=== PATIENT | female | born 1975 | race Caucasian/White ===

== ENCOUNTER 2025-09-28 01:00 | Emergency (ER) | payer OTHER, SELFPAY ==
--- NOTE | ~2025-09-28 | CT_ITS ---
CLINICAL HISTORY: fall +HS CT cervical spine without contrast Comparison: None provided. Findings: The visualized portions of the bilateral lung apices appear clear. No cervical spondylolisthesis. Guvd-ve-njhuwknt degenerative endplate changes are present at the cervical spine. No acute fractures or dislocations. Impression: 1. No acute fracture or dislocation injury identified at the cervical spine. This document has been electronically signed by: Jose Chavis MD on 09/28/2025 04:08:44
--- NOTE | ~2025-09-28 | CT_ITS ---
CLINICAL HISTORY: fall +HS CT head without contrast Comparison: None provided. Findings: No intracranial mass, midline shift, hydrocephalus, or acute hemorrhage. Slightly increased attenuation identified within the major intracranial arterial vessels, mildly limiting evaluation for subtle intracranial hemorrhage. Mild mucosal thickening identified within the ethmoid air cells with minimal mucosal thickening at the left maxillary sinus. The bilateral mastoid air cells appear clear. No acute skull fracture. Iokn-sx-sabuqlxr right occipital scalp hematoma present. There is a small amount of superimposed soft tissue gas, consistent with posttraumatic change. Impression: 1. No acute intracranial abnormality. No acute intracranial hemorrhage. 2. Magw-qz-itpmanim right occipital scalp hematoma with a small amount of superimposed soft tissue gas, consistent with posttraumatic change. No acute calvarial fracture. This document has been electronically signed by: Jose Chavis MD on 09/28/2025 04:13:22
[2025-09-28 01:12] VITALS: BP 136/75; PULSE 98; RESP 20; TEMP 36.7; O2SAT 98; BMI 20.9
--- NOTE | 2025-09-28 01:32 | PC.NURSE ---
patient brought in from triage via wheelchair to ed5 reporting fall with HS. [place]. patient then stated she went home and upon getting out of the car she fell backwards. unsure of LOC. asked pt who was with her to possibly confirm +/- LOC. pt stated she was alone and had drove herself. notified Philippe MAY of presenting sx and suggested head/neck CT scan. order placed per Philippe MAY verbal order. bump noted to back of head with small laceration, no bleeding at this time. visitor at bedside with pt.
[2025-09-28 01:42] VITALS: BP 119/80; PULSE 91; RESP 22; TEMP 36.4; O2SAT 97
[2025-09-28 01:54] LABS: MANUAL DIFF FLAG NO
[2025-09-28 01:55] LABS: Hematocrit 41.3 % (37.0-47.0); Hemoglobin 14.1 g/dl (12.0-16.0); Imm Gran Abs Auto 0.01 X10*3/uL (0.00-0.03); Imm Gran Pct Auto 0.2 % (0.0-0.4); Lymphocytes Absolute Auto 2.7 X10*3/uL (1.2-4.9); Mean Corpuscular HGB Conc 34.1 g/dl (31.0-35.0); Mean Corpuscular Hemoglobin 32.9 pg (27.0-33.0); Mean Corpuscular Volume 96.3 fL (80.0-98.0); NRBC Abs Auto 0.000 X10*3/uL (0.0-0.012); NRBC Pct Auto 0.0 /100WBC (0.0-0.2); Platelet Count 249 X10*3/uL (160-400); Red Blood Count 4.29 X10*6/uL (4.20-5.50); White Blood Count 6.3 X10*3/uL (4.8-10.8)
[2025-09-28 02:08] LABS: Alanine Aminotransferase 32 U/L (0-31); Albumin Level 4.7 g/dL (3.5-5.0); Alkaline Phosphatase 97 U/L (39-117); Anion Gap 13 (12-20); Aspartate Amino Transferase 30 U/L (5-31); Blood Urea Nitrogen 10 mg/dL (9-16); Calcium 9.0 mg/dL (8.4-10.2); Carbon Dioxide 29 mmol/L (22-29); Chloride 105 mmol/L (96-108); Creatinine Clr Calc Pharmacy 92.8; Estimated Glomerular Filt Rate > 60; Magnesium 2.2 mg/dL (1.6-2.6); Potassium 3.7 mmol/L (3.3-5.1); Sodium 143 mmol/L (135-145); Total Protein 6.9 g/dL (6.5-8.0)
--- NOTE | 2025-09-28 02:16 | PC.NURSE ---
patient had call [place] within reach. found in the hallway stated she wanted to use the bathroom. friend is at bedside in the room. pt did not use call [place]. ambulated with steady gait to bathroom and back. pt re educated on use of call [place]. pt then rang upon RN leaving room and upon re entering stated she didn't need anything. reeducation on using call [place] when necessary.
--- NOTE | 2025-09-28 02:25 | PC.NURSE ---
pt moved from ed5 to 10hall d/t bed availability report to mary bowie.
--- NOTE | 2025-09-28 02:30 | PC.NURSE ---
Pt attempting to leave unit, verbally directed back to stretcher. Pt becoming verbally agitated, swearing at staff
--- NOTE | 2025-09-28 02:38 | ED_ITS ---
HPI - Fall General Chief Complaint: Fall Stated Complaint: head strike Time Seen by Provider: 09/28/25 02:39 Source: patient Mode of arrival: ambulatory Limitations: no limitations History of Present Illness ED Provider: Philippe MAY HPI Narrative: The patient is a 49-year-old female presenting to the ED for evaluation after suffering a mechanical fall in which she fell backwards and struck her head on a cement floor. The patient is unsure if she lost consciousness, denies anticoagulation. The patient reports she was drinking alcohol throughout the day. The patient denies associated chest pain, shortness of breath, abdominal pain, nausea, vomiting, focal neurologic deficit, or other acute somatic complaint. Related Data Allergies Allergy/AdvReac Type Severity Reaction Status Date / Time No Known Allergies Allergy Verified 09/28/25 01:14 Review of Systems 2 Review of Systems: Yes all other systems are reviewed and are negative PMFSH Social History Social History Advance Directives: No Advance Directives Information Provided: Yes Do you have a plan to hurt others: No Plan Physical Exam 2 Vital Signs: Vital Signs: Last Vital Signs Temp 97.6 F 09/28/25 04:08 Pulse 91 09/28/25 04:08 Resp 22 H 09/28/25 04:08 BP 119/80 09/28/25 04:08 Pulse Ox 97 09/28/25 04:08 O2 Del Method Room Air 09/28/25 04:08 BMI result Body Mass Index 20.9 CONSTITUTIONAL: The patient appears clinically intoxicated, odor of EtOH metabolites on breath, otherwise non-toxic, well nourished and in no acute distress. Vital signs as documented. HEAD: There is a 3.5 cm laceration noted to the right occiput with the hemostasis noted, no underlying crepitus, head is otherwise atraumatic, normocephalic. EYES: EOMs grossly intact, pupils equal, conjunctiva clear, no exudate. ENT: Nares patent, no discharge. Airway patent, no audible stridor, visible mucosa is pink and moist without noted lesions. NECK: Trachea is midline, no obvious masses or gross abnormalities. CHEST: Symmetric movement, normal appearance. LUNGS: LS present and CTAB, no w/r/r. Non-labored work of breathing. CARDIAC: Regular Rhythm, S1/S2 appreciated, no murmurs, rubs or gallops. ABDOMEN: Abdomen soft and non-tender x4 quadrants, no palpable masses or organomegaly. : Deferred. EXTREMITIES: Normal tone, moves all extremities spontaneously without reported pain. No obvious acute injury or deformity noted. NEURO: Alert and oriented x3, CN II-XII appear grossly intact. Cerebellar Functioning grossly intact. No obvious sensory or motor deficits. Speech clear and appropriate. Patient ambulates with a steady gait. PSYCH: agitated but largely agreeablel affect, appropriate eye contact, pressured but otherwise appropriate speech, with appropriate response to questioning. No reported suicidality or homicidality. SKIN: Warm, dry, color appropriate, normal turgor. No rashes noted. Medications Administered Discontinued Medications Generic Name Dose Route Start Last Admin Trade Name Perezq PRN Reason Stop Dose Admin Lidocaine/Epinephrine 10 ml 09/28/25 02:56 09/28/25 02:58 Lidocaine Hcl 1%/Epi 1:100,000 10 Ml Vial INFILTRATI 09/28/25 02:57 10 ml ONCE ONE Administration Procedures Laceration Laceration 1: Site: scalp Side (If applicable): right Size (cm): 3.5 Description: linear and clean Depth: simple, single layer Local Anesthetic: lidocaine 1% and with epi Amount of anesthesia used (mL): 7 Pre-repair: wound explored and deep structures intact Skin layer closed with: cedric Number of closing items:: 7 Technique: cedric Medical Decision Making Medical Decision Making [facility] Narrative: 2:58 AM 09/28/2025 (Vishal MAY): The patient is a 49-year-old female presenting to the ED for evaluation after suffering a mechanical fall in which she fell backwards and struck her head on a cement floor. The patient is unsure if she lost consciousness, denies anticoagulation. The patient reports she was drinking alcohol throughout the day. The patient denies associated chest pain, shortness of breath, abdominal pain, nausea, vomiting, focal neurologic deficit, or other acute somatic complaint. On exam patient has a laceration of the right occiput, with the hemostasis noted. Head is otherwise atraumatic, exam is otherwise unremarkable. The patient was sent for CT head and neck upon arrival in the ED. Results are pending. The patient was found have an ethanol level of 278. At time of this provider's interview the patient was requesting to leave without intervention, and without being seen. Patient presenting to the ED with her friend Shawnee who is sober, and is encouraged the patient to stay for evaluation and repair of the laceration. Patient was able to be redirected and returned to her stretcher. The patient we will have local anesthetic for pain control, we will await CT imaging results and pending unremarkable CT we will repair of the laceration. 4:05 AM 09/28/2025 (Vishal MAY): The patient is becoming more agitated, demanding to be discharged. Patient does not want to wait any longer for CT results. The patient again was eloping from the ED but with redirection from this provider and her friend, agreed to return to her exam stretcher for administration of cedric, however is adamantly refusing to wait for CT results. The patient is currently oriented to person, time, and place, and ambulates with a steady gait. The patient is able to communicate her reason to forgo CT results. The patient has demonstrated her understanding of this provider's concern for intracranial hemorrhage, skull fracture, and/or cervical fracture by repeating the stated concern in her own terms. The patient was able to state her understanding of the potential negative outcomes of failing to diagnose and treat her condition, including continued or worsening pain, permanent disability or disfigurement, a decreased quality of life, or . As such, the patient demonstrated capacity to make her own medical decisions regardless of whether this provider agrees with her reasoning. The patient's laceration was stapled. The patient will be signed out against medical advice to the care of her friend Shawnee who was present in the ED and sober. 4:35 AM 09/28/2025 (Vishal MAY): Patient's CT head and neck have resulted and showed no calvarial fracture, cervical spine fracture, or intracranial hemorrhage. Occipital hematoma noted consistent with exam. No indication for callback. Admission/Observation Consideration of admission/observation: Escalation of care including admission/observation considered Lab Data MDM Lab Attestation statement: I reviewed the patient's lab results. 09/28/25 01:50 09/28/25 01:50 Labs: Lab Results 09/28/25 Range/Units 01:50 WBC 6.3 (4.8-10.8) X10*3/uL RBC 4.29 (4.20-5.50) X10*6/uL Hgb 14.1 (12.0-16.0) g/dl Hct 41.3 (37.0-47.0) % MCV 96.3 (80.0-98.0) fL MCH 32.9 (27.0-33.0) pg MCHC 34.1 (31.0-35.0) g/dl RDW 12.0 (11.0-16.0) % Plt Count 249 (160-400) X10*3/uL MPV 11.4 (9.4-12.3) fL Immature Gran % (Auto) 0.2 (0.0-0.4) % Neut % (Auto) 44.8 L (45-73) % Lymph % (Auto) 42.3 H (20-40) % [place] % (Auto) 7.0 (2-11) % Eos % (Auto) 4.3 H (0-4) % Baso % (Auto) 1.4 (0-2) % Lymph # (Auto) 2.7 (1.2-4.9) X10*3/uL [place] # (Auto) 0.4 (0.1-1.2) X10*3/uL Eos # (Auto) 0.3 (0.0-0.4) X10*3/uL Baso # (Auto) 0.1 (0.0-0.2) X10*3/uL Abs Immat Gran (auto) 0.01 (0.00-0.03) X10*3/uL Absolute Neuts (auto) 2.8 (2.0-8.3) x10*3/uL Absolute Nucleated RBC 0.000 (0.0-0.012) X10*3/uL Nucleated RBC % (auto) 0.0 (0.0-0.2) /100WBC Sodium 143 (135-145) mmol/L Potassium 3.7 (3.3-5.1) mmol/L Chloride 105 (96-108) mmol/L Carbon Dioxide 29 (22-29) mmol/L Anion Gap 13 (12-20) BUN 10 (9-16) mg/dL Creatinine 0.77 (0.5-1.4) mg/dL Estim Creat Clear Calc 92.8 Estimated GFR > 60 Random Glucose 109 (60-115) mg/dL Calcium 9.0 (8.4-10.2) mg/dL Magnesium 2.2 (1.6-2.6) mg/dL Total Bilirubin 0.3 (0.0-1.0) mg/dL AST 30 (5-31) U/L ALT 32 H (0-31) U/L Alkaline Phosphatase 97 (39-117) U/L Total Protein 6.9 (6.5-8.0) g/dL Albumin 4.7 (3.5-5.0) g/dL Ethyl Alcohol 278 mg/dL Radiology Impression Discussion of test interpretation with radiology: I have reviewed the radiologist's reading. Radiologist Impression: CT cervical spine without contrast Comparison: None provided. Findings: The visualized portions of the bilateral lung apices appear clear. No cervical spondylolisthesis. Wzlm-wq-xjamuyej degenerative endplate changes are present at the cervical spine. No acute fractures or dislocations. Impression: 1. No acute fracture or dislocation injury identified at the cervical spine. This document has been electronically signed by: Jose Chavis MD on 09/28/2025 04:08:44 CT head without contrast Comparison: None provided. Findings: No intracranial mass, midline shift, hydrocephalus, or acute hemorrhage. Slightly increased attenuation identified within the major intracranial arterial vessels, mildly limiting evaluation for subtle intracranial hemorrhage. Mild mucosal thickening identified within the ethmoid air cells with minimal mucosal thickening at the left maxillary sinus. The bilateral mastoid air cells appear clear. No acute skull fracture. Pjaf-ey-hrdlhbju right occipital scalp hematoma present. There is a small amount of superimposed soft tissue gas, consistent with posttraumatic change. Impression: 1. No acute intracranial abnormality. No acute intracranial hemorrhage. 2. Karb-nw-pbauzkfw right occipital scalp hematoma with a small amount of superimposed soft tissue gas, consistent with posttraumatic change. No acute calvarial fracture. This document has been electronically signed by: Jose Chavis MD on 09/28/2025 04:13:22 Discharge Plan Discharge Clinical Impression: Laceration of scalp Qualifiers: Encounter type: initial encounter Qualified Code(s): S01.01XA - Laceration without foreign body of scalp, initial encounter Alcohol intoxication Qualifiers: Complication of substance-induced condition: uncomplicated Qualified Code(s): F 10.920 - Alcohol use, unspecified with intoxication, uncomplicated Fall Qualifiers: Encounter type: initial encounter Qualified Code(s): W19.XXXA - Unspecified fall, initial encounter Patient Disposition: Left Against Medical Advice Instructions: Alcohol Intoxication (ED), Abuse of Alcohol (ED), Staple Care (ED), Head Laceration (ED) Additional Instructions: Thank you for choosing [facility]'s Emergency Department for your care today. It was recommended that you remain in the ED for results of your CT imaging after your fall. You have declined this recommended care plan and instead are choosing to leave the ED against medical advice. You have stated your understanding that by not completing your recommended evaluation or treatment we are unable to fully exclude all potential emergent processes which may be contributing to your symptoms. Failure to exclude dangerous causes of your symptoms could result in worsening pain, decreased quality of life, and . Please understand that your decision to leave against medical advice today does not preclude you from returning to the ED for re-evaluation if you change your mind at any time. It is extremely important that you follow up with your primary care physician for re-evaluation, additional management of your symptoms, and continued preventative care. Your scalp laceration was repaired with 7 cedric. The cedric were we will need to be removed in 7-10 days. You may apply bacitracin over the cedric for the next 2-3 days, however after that time please allow the laceration to dry out and heal. Please follow up with the primary care provider, an urgent care center, or return to the ED for removal of the cedric. Please do not remove the cedric yourself. If you do not have a primary care physician, please call the [facility] at [phone] to establish a new primary care physician. While waiting to establish your new primary care physician, you can call our [facility] at [phone] for non-emergency needs. Please return to the emergency department if you change your mind regarding her care, develop a severe or sudden change in your symptoms, a fever over 100.4 that does not improve with Tylenol or Ibuprofen, recurrent vomiting, or any other new or worsening symptoms or concerns. Referrals: Kath Sterling MD [Primary Care Provider, Internal Medicine] Clinical Impression: Alcohol intoxication; Fall; Laceration of scalp Stand Alone Forms: Against Medical Advice Interventions: ED Discharge Assessment Last Done: 09/28/25 04:08 Discharge Date/Time: 09/28/25 04:11 Print Language: Ukrainian
--- NOTE | 2025-09-28 02:41 | PC.NURSE ---
Pt is continuing to act belligerently, yelling out and swearing. Needing frequent redirection. Awaiting CT results.
--- NOTE | 2025-09-28 02:57 | PC.NURSE ---
lido 2% with epi not available at this time. lido 1% with epi ordered per PA Verbal order and PA at bedside with epi at this time.
[2025-09-28] MEDS: Lidocaine HCl 1%/Epi 1:100,000 10 ML VIAL INFILTRATI (02:58)
[2025-09-28 04:08] VITALS: BP 119/80; PULSE 91; RESP 22; TEMP 36.4; O2SAT 97
== END 2025-09-28 04:11 | disposition left against medical advice (07) ==
PROVIDERS: Emergency Provider Emergency Medicine; PCP Internal Medicine Geriatric Medicine
DX: S01.01XA Laceration without foreign body of scalp, initial encounter (principal); F10.129 Alcohol abuse with intoxication, unspecified; R51.9 Headache, unspecified; M54.2 Cervicalgia; Y90.8 Blood alcohol level of 240 mg/100 ml or more; X58.XXXA Exposure to other specified factors, initial encounter; Y93.9 Activity, unspecified; Y92.9 Unspecified place or not applicable; Y99.9 Unspecified external cause status; Z51.81 Encounter for therapeutic drug level monitoring; Z79.899 Other long term (current) drug therapy
CPT/HCPCS: 12002; 36415; 70450; 72125; 80053; 80307; 83735; 85025; 99284; J2004

== ENCOUNTER → 2025-09-28 01:27 | Outpatient (BNV) | payer SELFPAY | PROVIDERS: Emergency Provider Emergency Medicine; PCP Internal Medicine Geriatric Medicine; Visit Provider Radiology Diagnostic Radiology | DX: S09.90XA Unspecified injury of head, initial encounter (principal); S00.03XA Contusion of scalp, initial encounter | CPT/HCPCS: 70450; 72125 ==